=== PATIENT | male | born 1995 | race Caucasian/White ===

== ENCOUNTER 2017-11-10 17:18 | Emergency (ER) | payer OTHER ==
[2017-11-10] MEDS: ONDANSETRON 4MG/2ML VIAL (J2405) IV (19:45)
[2017-11-10 20:49] LABS: ANION GAP 7 MEQ/L (8-16); BLOOD UREA NITROGEN 18 MG/DL (7-18); CALCIUM LEVEL 8.9 MG/DL (8.5-10.1); CARBON DIOXIDE LEVEL 27 MEQ/L (21-32); CHLORIDE LEVEL 105 MEQ/L (98-107); CREATININE FOR GFR 1.36 MG/DL (0.70-1.30); GLOMERULAR FILTRATION RATE > 60.0 (>60); GLUCOSE, FASTING 105 MG/DL (70-100); POTASSIUM SERUM 4.3 MEQ/L (3.5-5.1); SODIUM LEVEL 139 MEQ/L (136-145)
[2017-11-10 21:36] LABS: CPK CREATINE PHOSPHOKINASE 216 U/L (39-308)
[2017-11-10 21:47] LABS: AMPHETAMINES LEVEL URINE NEGATIVE (NEGATIVE); BARBITURATES URINE NEGATIVE (NEGATIVE); BENZODIAZEPINES URINE NEGATIVE (NEGATIVE); CANNABINOIDS URINE NEGATIVE (NEGATIVE); COCAINE METABOLITE URINE NEGATIVE (NEGATIVE); METHADONE URINE NEGATIVE (NEGATIVE); OPIATES URINE NEGATIVE (NEGATIVE); PHENCYCLIDINE URINE NEGATIVE (NEGATIVE)
[2017-11-10] MEDS: ONDANSETRON 4 MG ORAL DISINTEGRATING TAB (S0181) PO (22:45)
== END 2017-11-10 22:53 | disposition home or self-care (01) ==
LOC: M ED 17:18
DX: K52.9 Noninfective gastroenteritis and colitis, unspecified (principal); E86.0 Dehydration
CPT/HCPCS: J2405

== ENCOUNTER 2019-10-02 19:52 | Emergency (ER) | payer OTHER, SELFPAY ==
[~2019-10-02] VITALS: Ht 182.9 cm; Wt 89.7 kg
[~2019-10-02 19:52] MED LIST: ZOFR4TAB14 PO
[2019-10-02 20:38] LABS: BASO % 0.5 % (0.0-1.0); EOS # 0.1 10^3/uL (0.0-0.5); EOS % 1.7 % (0.0-3.0); HEMATOCRIT 46.8 % (42.0-52.0); HEMOGLOBIN 15.1 g/dl (13.5-17.5); LYMPH # 1.5 10^3/uL (1.5-5.0); LYMPH % 23.7 % (24.0-44.0); MEAN CORPUSCULAR HEMOGLOBIN 29.7 pg (27.0-33.0); MEAN CORPUSCULAR HGB CONC 32.3 g/dl (32.0-36.5); MEAN CORPUSCULAR VOLUME 92.1 fl (80.0-96.0); MONO # 0.5 10^3/uL (0.0-0.8); MONO % 8.4 % (0.0-5.0); NEUTROPHILS # 4.1 10^3/uL (1.5-8.5); NEUTROPHILS % 65.4 % (36.0-66.0); PLATELET COUNT, AUTOMATED 270 10^3/uL (150-450); RED BLOOD COUNT 5.08 10^6/uL (4.30-6.10); WHITE BLOOD COUNT 6.3 10^3/uL (4.0-10.0)
[2019-10-02 21:21] LABS: BLOOD UREA NITROGEN 11 MG/DL (7-18); CALCIUM LEVEL 9.3 MG/DL (8.5-10.1); CARBON DIOXIDE LEVEL 30 MEQ/L (21-32); CHLORIDE LEVEL 110 MEQ/L (98-107); CK-MB VALUE MASS 4.1 NG/ML (<3.6); CPK CREATINE PHOSPHOKINASE 385 U/L (39-308); CREATININE FOR GFR 1.28 MG/DL (0.70-1.30); GLOMERULAR FILTRATION RATE > 60.0 (>60); GLUCOSE, FASTING 87 MG/DL (70-100); MB/CK RELATIVE INDEX 1.06 (< OR =4); POTASSIUM SERUM 4.4 MEQ/L (3.5-5.1); SODIUM LEVEL 144 MEQ/L (136-145); TROPONIN I 0.02 NG/ML (< 0.10)
[2019-10-02 22:05] VITALS: BP 135/69
[2019-10-02] MEDS ORDERED: KETOROLAC 30 MG/ML VIAL (J1885) IV ONE (22:15)
[2019-10-02] MEDS ORDERED: NAPR-837 PO (22:45)
--- NOTE | 2019-10-03 06:19 | ECGEPIP ---
[facility] - ED Test Date: 2019-10-02 Pat Name: DARIA GUZMAN Department: Room: - Gender: Male Adjunct Professor Of English: mars : 1995 Requested By: BATSHEVA KHAN Order Number: [id number] Reading MD: Grabiel Villanueva Measurements Intervals [place] Rate: 71 P: 31 ME: 111 QRS: 84 QRSD: 90 T: 23 QT: 376 QTc: 410 Interpretive Statements SINUS RHYTHM WITH SHORT ME INTERVAL POSSIBLE RIGHT VENTRICULAR CONDUCTION DELAY NONSPECIFIC ST T WAVE CHANGES NO PRIOR ECG FOR COMPARISON Electronically Signed on 10-03-2019 6:19:34 EST by Grabiel Villanueva
--- NOTE | 2019-10-03 09:12 | REP ---
Clinical: chest pain . Comparison: None . Technique: PA and lateral. Findings: The mediastinum and cardiac silhouette are normal. The lung webster are clear and without acute consolidation, effusion, or pneumothorax. The skeletal structures are intact and normal. Impression: 1. No acute cardiopulmonary process. Electronically Signed by Per Huber MD 10/03/2019 09:04 A
== END 2019-10-02 23:01 | disposition home or self-care (01) ==
LOC: M ED 19:52
DX: R09.1 Pleurisy (principal)
CPT/HCPCS: 71045; 71046; 80048; 82550; 82553; 84484; 85025; 85379; 93005; 96374; 99284; J1885

== ENCOUNTER → 2022-05-31 | Outpatient (REF) | payer SELFPAY ==
[~2022-05-31] MED LIST changes: +NAPR-837 PO
[2022-05-31 08:51] LABS: SEMEN APPEARANCE OPAQUE (OPAQUE); SEMEN VISCOSITY LIQUID (LIQUID); SEMEN WBC >1 M/ml (<=1 M/ml); SEMEN pH 8.5 (7.0-8.0)
== END ==
LOC: M SFHCWAGY 08:06
PROVIDERS: ATTEND Advanced Practice Midwife
DX: N46.9 Male infertility, unspecified (principal)

== ENCOUNTER → 2024-07-17 | Outpatient (CLI) | payer BC ==
[2024-07-17 11:10] LABS: FOLLICLE STIMULATING HORMONE 2.8 mIU/ML (1.4-18.1); LUTEINIZING HORMONE 1.3 mIU/ML (1.5-9.3)
[2024-07-17 11:11] LABS: ESTRADIOL 23.9 PG/ML (<39.8)
== END ==
LOC: M LAB 09:20
PROVIDERS: ATTEND Urology
DX: E29.1 Testicular hypofunction (principal)